=== PATIENT | female | born 1945 | race Caucasian/White ===

== ENCOUNTER → 2017-04-06 | Outpatient (CLI) | payer MEDICARE ==
[~2017-04-06] MED LIST: ASPIRIN81 MG PO; CYMBALTA 30 MG30 MG PO; DIOVAN160 MG PO; HYDROCODON-ACE1 EAC2 PO; ISOSORBIDE MONO60 MG PO; LEVOTHYROXINE50 MCG PO; LIPITOR80 MG PO; LOPRESSOR50 MG PO; MELOXICAM7.5 MG PO; OMEPRAZOLE40 MG PO; PLAVIX 75 MG TA75 MG PO; TOPAMAX25 MG PO
== END ==
LOC: RAD 16:14
DX: M25.552 Pain in left hip (principal); M54.5 Low back pain; M47.817 Spondylosis without myelopathy or radiculopathy, lumbosacral region
CPT/HCPCS: 72100; 73502

== ENCOUNTER → 2017-04-17 | Outpatient (CLI) | payer MEDICARE | LOC: US 04-16 13:00 → KOH-I 14:42 | DX: R60.0 Localized edema (principal) | CPT/HCPCS: 93970 ==

== ENCOUNTER 2020-12-25 11:55 | Emergency (ER) | payer MEDICARE, OTHER ==
[~2020-12-25 11:55] MED LIST changes: +ASPIRIN 325MG325 MG PO; -ASPIRIN81 MG PO; +BENICAR40 MG PO; +COZAAR25 MG PO; +CRESTOR 10 MG T10 MG PO; +ELIQUIS2.5 MG PO; +FLONASE 0.05% N16 GM; +IBU600 MG PO; +ISOSORBIDE MONO30 MG PO; -ISOSORBIDE MONO60 MG PO; +LIPITOR TAB 2020 MG PO; +LOPRESSOR 25 MG25 MG PO; +LOVASTATIN20 MG PO; +NITROSTAT0.4 MG SL; +NORCO 7.5-3251 EACH PO; +VITAMIN D250000 UNIT PO
[2020-12-25 14:42] LABS: HEMOGLOBIN 12.7 gm/dl (12.3-15.3); RED BLOOD COUNT 4.47 M/UL (4.00-5.10)
[2020-12-25] MEDS ORDERED: MIRALAX 119 GR119 GM PO (16:53)
[2020-12-25] MEDS ORDERED: COLACE100 MG PO (16:53)
== END 2020-12-25 17:34 | disposition home or self-care (01) ==
LOC: ER1 11:55
PROVIDERS: Physician Assistant
DX: K59.00 Constipation, unspecified (principal); R53.1 Weakness; E11.9 Type 2 diabetes mellitus without complications; E78.5 Hyperlipidemia, unspecified; I10 Essential (primary) hypertension; E78.00 Pure hypercholesterolemia, unspecified; Z90.49 Acquired absence of other specified parts of digestive tract; Z95.1 Presence of aortocoronary bypass graft
CPT/HCPCS: 36415; 80053; 81001; 83690; 85025; 99284; Q9967

== ENCOUNTER → 2021-06-17 | Outpatient (CLI) | payer MEDICARE ==
[~2021-06-17] MED LIST changes: +COLACE100 MG PO; +MIRALAX 119 GR119 GM PO
== END ==
LOC: RAD 12:28
DX: M25.551 Pain in right hip (principal); M54.5 Low back pain; M47.816 Spondylosis without myelopathy or radiculopathy, lumbar region; W19.XXXA Unspecified fall, initial encounter
CPT/HCPCS: 72110; 73502

== ENCOUNTER → 2021-10-01 | Outpatient (CLI) | payer MEDICARE ==
[~2021-10-01] MED LIST changes: +ATIVAN 1MG TABLE1 MG PO; +CALAN 80MG TABL80 MG PO; +CYMBALTA60 MG PO; -LIPITOR TAB 2020 MG PO; +LIPITOR40 MG PO; +SINGULAIR10 MG PO
[2021-10-01 14:04] LABS: HEMOGLOBIN 12.5 gm/dl (12.3-15.3); RED BLOOD COUNT 4.38 M/UL (4.00-5.10); WHITE BLOOD COUNT 6.1 K/UL (4.5-11.0)
== END ==
LOC: OPSV2 12:30
PROVIDERS: Orthopaedic Surgery
DX: Z01.818 Encounter for other preprocedural examination (principal); M65.332 Trigger finger, left middle finger; R94.31 Abnormal electrocardiogram [ECG] [EKG]
CPT/HCPCS: 36415; 80048; 85025; 93005

== ENCOUNTER → 2021-10-02 | Day surgery (SDC) | payer MEDICARE ==
[~2021-10-02] MED LIST changes: +CLOBETASOL 0.0560 GM TOP
== END | disposition home or self-care (01) ==
LOC: OR 05:24
PROVIDERS: Orthopaedic Surgery
PROC: 0LN80ZZ Release Left Hand Tendon, Open Approach (ICD-10-PCS; principal; 2021-10-02 07:45)
DX: M65.332 Trigger finger, left middle finger (principal); I11.9 Hypertensive heart disease without heart failure; E78.5 Hyperlipidemia, unspecified; I25.10 Atherosclerotic heart disease of native coronary artery without angina pectoris; K21.9 Gastro-esophageal reflux disease without esophagitis; G47.30 Sleep apnea, unspecified; K44.9 Diaphragmatic hernia without obstruction or gangrene; M19.90 Unspecified osteoarthritis, unspecified site; E03.9 Hypothyroidism, unspecified; Z20.822 Contact with and (suspected) exposure to COVID-19; Z95.5 Presence of coronary angioplasty implant and graft; Z79.01 Long term (current) use of anticoagulants; Z79.899 Other long term (current) drug therapy
CPT/HCPCS: J0690; J1100; J2405; J2704; J3010; J7030; J7120

== ENCOUNTER 2021-10-05 17:50 | Inpatient (IN) | payer MEDICARE ==
[~2021-10-05] VITALS: Ht 165.1 cm; Wt 81.6 kg
[~2021-10-05 17:50] MED LIST changes: -CLOBETASOL 0.0560 GM TOP
[2021-10-05 18:49] LABS: HEMOGLOBIN 13.1 gm/dl (12.3-15.3); RED BLOOD COUNT 4.5 M/UL (4.00-5.10); WHITE BLOOD COUNT 6.7 K/UL (4.5-11.0)
[2021-10-05 19:14] LABS: BUN/CREATININE RATIO 17 (0-10)
[2021-10-06] MEDS ORDERED: CLOBETASOL 0.0560 GM TOP (02:49)
[2021-10-06 06:53] LABS: HEMOGLOBIN 12.7 gm/dl (12.3-15.3); RED BLOOD COUNT 4.44 M/UL (4.00-5.10)
[2021-10-06 07:17] LABS: BUN/CREATININE RATIO 15 (0-10)
[2021-10-07 09:27] LABS: HEMOGLOBIN 13.5 gm/dl (12.3-15.3); RED BLOOD COUNT 4.65 M/UL (4.00-5.10)
[2021-10-07 09:48] LABS: BUN/CREATININE RATIO 25 (0-10); WHITE BLOOD COUNT 11.1 K/UL (4.5-11.0)
--- NOTE | 2021-10-07 14:39 | NUR ---
PATIENT ASSISTED TO BATHROOM WITH 02 @1 LITER NASAL CANNULA THIS AM. TELE CALLED AND SATS 88% ASSISTED BACK TO BED AND RESTED WITH OXYGEN NEEDS MET.
[2021-10-08 06:59] LABS: HEMOGLOBIN 13.2 gm/dl (12.3-15.3); RED BLOOD COUNT 4.59 M/UL (4.00-5.10); WHITE BLOOD COUNT 9.6 K/UL (4.5-11.0)
[2021-10-08 07:50] LABS: BUN/CREATININE RATIO 30 (0-10)
[2021-10-08] MEDS ORDERED: PROVENTIL HFA6.7 GM INH (11:02)
[2021-10-08] MEDS ORDERED: LOPRESSOR50 MG PO (11:02)
[2021-10-08] MEDS ORDERED: ASPIRIN EC81 MG PO (11:02)
[2021-10-08] MEDS ORDERED: DECADRON6 MG PO (11:02)
--- NOTE | 2021-10-08 14:28 | NUR ---
OXYGEN TANK TEACHING DONE, PT VERBALIZED UNDERSTANDING.
== END 2021-10-08 15:42 | disposition home or self-care (01) | DRG 177 ==
LOC: ER1 17:50 → CDU 22:05 → MED SURG 4 22:05
PROVIDERS: Internal Medicine Infectious Disease; Physician Assistant; ADMIT Internal Medicine
PROC: 8E0ZXY6 Isolation (ICD-10-PCS; principal; 2021-10-05)
PROC: 3E0333Z Introduction of Anti-inflammatory into Peripheral Vein, Percutaneous Approach (ICD-10-PCS; 2021-10-05)
PROC: XW033E5 Introduction of Remdesivir Anti-infective into Peripheral Vein, Percutaneous Approach, New Technology Group 5 (ICD-10-PCS; 2021-10-05)
DX: U07.1 COVID-19 (principal); J96.01 Acute respiratory failure with hypoxia; I25.10 Atherosclerotic heart disease of native coronary artery without angina pectoris; E78.5 Hyperlipidemia, unspecified; I10 Essential (primary) hypertension; M54.50 Low back pain, unspecified; G47.33 Obstructive sleep apnea (adult) (pediatric); G89.29 Other chronic pain; E03.9 Hypothyroidism, unspecified; K21.9 Gastro-esophageal reflux disease without esophagitis; Z95.1 Presence of aortocoronary bypass graft; Z86.73 Personal history of transient ischemic attack (TIA), and cerebral infarction without residual deficits; Z82.49 Family history of ischemic heart disease and other diseases of the circulatory system; Z99.81 Dependence on supplemental oxygen
CPT/HCPCS: 0240U; 36415; 36600; 71045; 80048; 80053; 82550; 82553; 82803; 83605; 83615; 83874; 83880; 84484; 85025; 86140; 93005; 94640; 94664; 94760; 99285; J0360; J1100; J1650; J7030; Q9967

== ENCOUNTER 2022-03-08 21:52 | Emergency (ER) | payer MEDICARE ==
[~2022-03-08 21:52] MED LIST changes: +ASPIRIN EC81 MG PO; +CLOBETASOL 0.0560 GM TOP; +DECADRON6 MG PO; +PROVENTIL HFA6.7 GM INH
== END 2022-03-09 01:15 | disposition home or self-care (01) ==
LOC: ER1 21:52
DX: S00.33XA Contusion of nose, initial encounter (principal); S80.01XA Contusion of right knee, initial encounter; S00.83XA Contusion of other part of head, initial encounter; Z23 Encounter for immunization; I11.9 Hypertensive heart disease without heart failure; W01.10XA Fall on same level from slipping, tripping and stumbling with subsequent striking against unspecified object, initial encounter
CPT/HCPCS: 70450; 70486; 73130; 73564; 90471; 90714; 99284